=== PATIENT | female | born 2000 | race African-American/Black ===

== ENCOUNTER 2021-05-24 12:04 | Emergency (ER) | payer OTHER ==
[~2021-05-24] VITALS: Ht 167.6 cm; Wt 59.0 kg
[~2021-05-24 12:04] MED LIST: OMNICEF250 MG/5 M PO
[2021-05-24] MEDS ORDERED: EXCEDRIN CAPLE1 EACH PO (12:10)
[2021-05-24] MEDS ORDERED: MAGNESIUM250 M1 PO (12:10)
[2021-05-24 12:49] LABS: HEMATOCRIT 35.1 % (37.0-47.0); HEMOGLOBIN 12.1 gm/dL (12.0-15.0); MCH 32.4 pg (26.0-34.0); MCHC 34.5 g/dL (28.0-37.0); MCV 93.8 fL (80.0-100.0); RBC 3.74 mil/uL (4.20-5.00); RDW 11.9 % (10.5-14.5); WBC 4.5 thou/uL (4.0-11.0)
[2021-05-24 12:53] LABS: CALCIUM 9.1 mg/dL (8.5-10.1); CREATININE 0.8 mg/dL (0.6-1.0); POTASSIUM 3.9 mmol/L (3.5-5.1)
[2021-05-24 13:56] VITALS: BP 107/63
== END 2021-05-24 13:56 | disposition home or self-care (01) ==
LOC: ER 12:04
PROVIDERS: Nurse Practitioner Family
DX: F07.81 Postconcussional syndrome (principal); G44.309 Post-traumatic headache, unspecified, not intractable; Z79.82 Long term (current) use of aspirin; Z79.899 Other long term (current) drug therapy